=== PATIENT | male | born 1965 | race Caucasian/White ===

== ENCOUNTER 2017-03-11 01:49 | Emergency (ER) | payer BC, SELFPAY ==
--- NOTE | 2017-03-11 11:07 | CT ---
PRELIMINARY REPORT/[facility]/EMERGENCY AFTER HOURS PROCEDURE: EXAM: CT Head Without Intravenous Contrast EXAM DATE/TIME: Exam ordered 03/11/2017 2:23 AM CLINICAL HISTORY: 51 years old, male; Injury or trauma; Fall; Initial encounter; Blunt trauma (contusions or hematomas ); Consciousness not specified; Patient HX: S/P fall TECHNIQUE: Axial computed tomography images of the head/brain without intravenous contrast. COMPARISON: No relevant prior studies available. FINDINGS: Brain: Unremarkable. No hemorrhage. No significant white matter disease. No edema. Ventricles: Unremarkable. No ventriculomegaly. Bones/joints: Nasal bone fractures, age indeterminate. Soft tissues: Large frontal scalp hematoma. Sinuses: Unremarkable as visualized. No acute sinusitis. Mastoid air cells: Unremarkable as visualized. No mastoid effusion. IMPRESSION: 1. Nasal bone fractures, age indeterminate. 2. No intracranial hemorrhage. Thank you for allowing us to participate in the care of your patient. Dictated and Authenticated by: Lucio Garrison MD 03/11/2017 2:52 AM Central Time ([place] \[place]\ [place]) FINAL REPORT CT HEAD NONCONTRAST: DATE: 03/11/17. TIME: Performed on an emergency basis at 0225 hours. HISTORY: Fall. Head injury. FINDINGS: Findings agree with the preliminary report by Dr. Garrison from [facility]. No acute intracra nial abnormalities are demonstrated. Nasal bone fractures and frontal scalp hematoma are confirmed. POS: [facility]
--- NOTE | 2017-03-11 11:08 | CT ---
PRELIMINARY REPORT/[facility]/EMERGENCY AFTER HOURS PROCEDURE: EXAM: CT Cervical Spine Without Intravenous Contrast EXAM DATE/TIME: Exam ordered 03/11/2017 2:30 AM CLINICAL HISTORY: 51 years old, male; Injury or trauma; Fall; Initial encounter; Blunt trauma; Patient HX: S/P fall TECHNIQUE: Axial computed tomography images of the cervical spine without intravenous contrast. All CT scans at this facility use one or more dose reduction techniques, viz.: automated exposure control; ma/kV ad justment per patient size (including targeted exams where dose is matched to indication; i.e. head) ; or iterative reconstruction technique. COMPARISON: No relevant prior studies available. FINDINGS: Vertebrae: Unremarkable. No acute fracture. Discs/spinal canal/neural foramina: No acute findings. No spinal canal stenosis. Soft tissues: Unremarkable. Lung apices: Unremarkable as visualized. IMPRESSION: Normal cervical spine CT. Thank you for allowing us to participate in the care of your patient. Dictated and Authenticated by: Lucio Garrison MD 03/11/2017 2:58 AM Central Time ([place] \[place]\ [place]) FINAL REPORT CT CERVICAL SPINE NONCONTRAST: DATE: 03/11/17. TIME: Performed on an emergency at 0232 hours. HISTORY: Fall. Neck injury. FINDINGS: Findings agree with the preliminary report by Dr. Garrison from [facility]. No acute osseous abnormalities of the cervical spine are demonstrated. POS: [facility]
--- NOTE | 2017-03-11 11:10 | CT ---
PRELIMINARY REPORT/[facility]/EMERGENCY AFTER HOURS PROCEDURE: EXAM: CT Maxillofacial Without Intravenous Contrast EXAM DATE/TIME: Exam ordered 03/11/2017 2:27 AM CLINICAL HISTORY: 51 years old, male; Injury or trauma; Fall; Initial encounter; Blunt trauma (contusions or hematomas ); Forehead; Patient HX: S/P fall TECHNIQUE: Axial computed tomography images of the face without intravenous contrast. COMPARISON: CT Brain WO Con 03/11/2017 2:23:56 AM FINDINGS: Bones/joints: Acute nasal bone fractures. Soft tissues: Large frontal scalp hematoma. Orbits: Unremarkable. Sinuses: Unremarkable. No air-fluid levels. IMPRESSION: Acute nasal bone fractures. Thank you for allowing us to participate in the care of your patient. Dictated and Authenticated by: Lucio Garrison MD 03/11/2017 3:11 AM Central Time ([place] \[place]\ [place]) FINAL REPORT CT FACE NONCONTRAST: DATE: 03/11/17. TIME: Performed on an emergency basis at 0230 hours. HISTORY: Fall. Facial injury. FINDINGS: No comparison. Findings agree with the preliminary report by Dr. Garrison from [facility]. L arge right frontal scalp hematoma is apparent. Mildly displaced nasal bone fractures are apparent. The globes and mandible are intact. POS: [facility]
== END 2017-03-11 04:10 | disposition home or self-care (01) ==
LOC: ERS 01:49
DX: S01.511A Laceration without foreign body of lip, initial encounter (principal); F10.129 Alcohol abuse with intoxication, unspecified; W19.XXXA Unspecified fall, initial encounter
CPT/HCPCS: 70450; 70486; 72125